=== PATIENT | female | born 1965 | race Caucasian/White ===

== ENCOUNTER 2017-07-06 13:55 | Inpatient (IN) | payer MEDICARE, MEDICAID ==
[~2017-07-06] VITALS: Ht 182.9 cm; Wt 72.3 kg
[2017-07-06] MEDS ORDERED: FAMOTIDINE 20 MG/2 ML ONE (15:23)
[2017-07-06] MEDS ORDERED: ONDANSETRON 2MG/ML, 2ML ONE (15:23)
[2017-07-06] MEDS ORDERED: SODIUM CHLORIDE 0.9% 1,000ML IVBOLUS ONE (15:30)
[2017-07-06] MEDS ORDERED: SODIUM CHLORIDE FLUSH 10ML SYR IVF ONE (15:30)
[2017-07-06] MEDS ORDERED: ONDANSETRON 2MG/ML, 2ML IVPush ONE (15:30)
[2017-07-06] MEDS ORDERED: FAMOTIDINE 20 MG/2 ML IVP ONE (15:30)
[2017-07-06] MEDS ORDERED: morphine SULFATE 10 MG/ML, 1ML ONE (15:30)
[2017-07-06 15:36] LABS: HEMATOCRIT 42.4 % (34.6-47.8); HEMOGLOBIN 14.1 g/dL (11.7-16.4); WHITE BLOOD COUNT 26.8 x10^3/uL (3.4-10)
[2017-07-06 15:43] LABS: ASPARTATE AMINO TRANSFERASE 5 U/L (15-37); BLOOD UREA NITROGEN 9 mg/dL (7-18)
[2017-07-06 15:57] LABS: DIFF TOTAL CELLS COUNTED 100 CELL DIFF
[2017-07-06 16:00] LABS: ANISOCYTOSIS 2+; MICROCYTOSIS 1+; POLYCHROMASIA 1+
[2017-07-06] MEDS ORDERED: MORPHINE SULFATE 4 MG/ML, 1ML IVPush PRN (16:00)
[2017-07-06 16:01] LABS: OVALOCYTES 1+
[2017-07-06 16:05] LABS: VERIFY COUNTS? YES
[2017-07-06] MEDS ORDERED: OMNIPAQUE 350 MG/ML, 100ML BOTTLE ONE (18:31)
[2017-07-06] MEDS ORDERED: SODIUM CHLORIDE 0.9% 1,000 ML IV ONE (19:57)
[2017-07-06] MEDS ORDERED: HYDROmorphone 1 MG/ML, 1ML IVPush PRN (20:00)
[2017-07-06] MEDS ORDERED: SODIUM CHLORIDE FLUSH 10ML SYR IVF PRN (20:00)
[2017-07-06] MEDS ORDERED: ONDANSETRON 2MG/ML, 2ML IVPush PRN ×2 (20:00→22:30)
[2017-07-06 21:50] VITALS: BP 106/93
[2017-07-06 22:23] VITALS: BP 106/73
[2017-07-06] MEDS ORDERED: ENALAPRILAT 1.25 MG/ML, 2ML IVPush PRN (22:30)
[2017-07-06] MEDS ORDERED: HYDROmorphone 2 MG/ML, 1ML IVPush PRN (22:30)
[2017-07-06] MEDS: SODIUM CHLORIDE 0.9% 1,000 ML IV SCH (23:00)
[2017-07-06] MEDS: NITROFURANTOIN (MACROBID) 100 MG CAPSULE PO SCH (23:00)
[2017-07-06] MEDS: ENOXAPARIN 40 MG/0.4 ML SQ SCH (23:00)
[2017-07-06] MEDS ORDERED: HYDROmorphone 2MG TABLET ONE (23:09)
[2017-07-06] MEDS: HYDROmorphone 4MG TABLET PO PRN (23:15)
[2017-07-07] MEDS ORDERED: NICOTINE 21 MG/24 HR PATCH.TD24 TD ONE ×2 (01:30→09:00)
[2017-07-07] MEDS ORDERED: HYDROmorphone 2MG TABLET ONE ×3 (02:26→09:44)
[2017-07-07] MEDS: HYDROmorphone 4MG TABLET PO PRN ×3 (02:27→10:03)
[2017-07-07 03:27] VITALS: BP 92/60
[2017-07-07] MEDS: SODIUM CHLORIDE 0.9% 1,000 ML IV SCH ×2 (05:37→14:09)
[2017-07-07 06:01] LABS: HEMATOCRIT 33.1 % (34.6-47.8); HEMOGLOBIN 10.9 g/dL (11.7-16.4); WHITE BLOOD COUNT 17.9 x10^3/uL (3.4-10)
[2017-07-07 06:06] LABS: BLOOD UREA NITROGEN 6 mg/dL (7-18)
[2017-07-07 06:21] LABS: DIFF TOTAL CELLS COUNTED 100 CELL DIFF
[2017-07-07 06:22] LABS: VERIFY COUNTS? YES
[2017-07-07 06:24] LABS: ANISOCYTOSIS 1+; POLYCHROMASIA 1+
[2017-07-07 06:25] LABS: OVALOCYTES 1+
[2017-07-07 07:00] VITALS: BP 99/65
[2017-07-07] MEDS: NITROFURANTOIN (MACROBID) 100 MG CAPSULE PO SCH ×2 (10:02→21:52)
[2017-07-07] MEDS ORDERED: QUET300T PO (11:25)
[2017-07-07] MEDS ORDERED: CARB200C PO (11:25)
[2017-07-07] MEDS ORDERED: ALPR2TAB5 PO (11:25)
[2017-07-07] MEDS ORDERED: MECL25TA4 PO (11:25)
[2017-07-07] MEDS ORDERED: BUSP15TA PO (11:25)
[2017-07-07] MEDS ORDERED: CODE1CAP7 PO (11:25)
[2017-07-07] MEDS ORDERED: CARI350T14 PO (11:25)
[2017-07-07] MEDS ORDERED: PROP40TA PO (11:25)
[2017-07-07] MEDS ORDERED: TRAZ50TA18 PO (11:25)
[2017-07-07] MEDS ORDERED: ALPRazolam 1MG TABLET PO ONE (12:00)
[2017-07-07] MEDS: CEFTRIAXONE PMX 2GM/50ML 50 ML IV SCH (12:13)
[2017-07-07 12:45] VITALS: BP 125/81
[2017-07-07] MEDS: OXYcodone IR 5MG TABLET PO PRN ×2 (14:56→21:53)
[2017-07-07] MEDS ORDERED: CALCIUM CITRATE 950 MG TABLET PO ONE (20:30)
[2017-07-07 20:53] VITALS: BP 143/87
[2017-07-07] MEDS: TRAZODONE 50MG TABLET PO SCH (21:52)
[2017-07-07] MEDS: QUETIAPINE 100MG TABLET PO SCH (21:53)
[2017-07-07] MEDS: BUSPIRONE 5 MG TABLET PO SCH (21:53)
[2017-07-07 21:54] LABS: ASPARTATE AMINO TRANSFERASE 6 U/L (15-37); BLOOD UREA NITROGEN 3 mg/dL (7-18)
[2017-07-07] MEDS: ENOXAPARIN 40 MG/0.4 ML SQ SCH (21:54)
[2017-07-07 22:12] LABS: HIV 1&2 ANTIBODY SCREEN Nonreactive (Nonreactive); HIV-1 p24 ANTIGEN Nonreactive (Nonreactive)
[2017-07-08 02:34] VITALS: BP 116/74
[2017-07-08] MEDS: SODIUM CHLORIDE 0.9% 1,000 ML IV SCH ×4 (02:52→21:40)
[2017-07-08 05:16] LABS: HEMATOCRIT 31.8 % (34.6-47.8); HEMOGLOBIN 10.5 g/dL (11.7-16.4); WHITE BLOOD COUNT 8.6 x10^3/uL (3.4-10)
[2017-07-08 05:21] LABS: BLOOD UREA NITROGEN 2 mg/dL (7-18)
[2017-07-08 08:00] VITALS: BP 139/98
[2017-07-08] MEDS: BUSPIRONE 5 MG TABLET PO SCH ×2 (09:00→21:24)
[2017-07-08] MEDS: QUETIAPINE 100MG TABLET PO SCH ×2 (09:00→19:43)
[2017-07-08] MEDS: NITROFURANTOIN (MACROBID) 100 MG CAPSULE PO SCH ×3 (09:00→21:23)
[2017-07-08] MEDS: CEFTRIAXONE PMX 2GM/50ML 50 ML IV SCH (10:41)
[2017-07-08 13:30] VITALS: BP 129/93
[2017-07-08 20:25] VITALS: BP 109/70
[2017-07-08 20:35] LABS: DAU SCREEN DISCLAIMER
[2017-07-08] MEDS: TRAZODONE 50MG TABLET PO SCH (21:00)
[2017-07-08] MEDS: ENOXAPARIN 40 MG/0.4 ML SQ SCH (21:24)
[2017-07-09 01:56] VITALS: BP 144/96
[2017-07-09] MEDS: OXYcodone IR 5MG TABLET PO PRN ×5 (03:38→22:17)
[2017-07-09] MEDS: SODIUM CHLORIDE 0.9% 1,000 ML IV SCH ×3 (06:17→22:39)
[2017-07-09 08:00] VITALS: BP 133/78
[2017-07-09] MEDS: BUSPIRONE 5 MG TABLET PO SCH ×2 (09:44→22:18)
[2017-07-09] MEDS: QUETIAPINE 100MG TABLET PO SCH ×2 (09:44→22:18)
[2017-07-09] MEDS: NITROFURANTOIN (MACROBID) 100 MG CAPSULE PO SCH (09:44)
[2017-07-09] MEDS: CEFTRIAXONE 2 GM in DEXTROSE 5% 50 ML IVPB SCH (13:42)
[2017-07-09 13:55] VITALS: BP 110/71
[2017-07-09 19:45] VITALS: BP 120/82
[2017-07-09] MEDS: ENOXAPARIN 40 MG/0.4 ML SQ SCH (22:18)
[2017-07-09] MEDS: TRAZODONE 50MG TABLET PO SCH (22:18)
[2017-07-10 02:11] VITALS: BP 121/82
[2017-07-10] MEDS: SODIUM CHLORIDE 0.9% 1,000 ML IV SCH ×3 (06:21→19:55)
[2017-07-10] MEDS: OXYcodone IR 5MG TABLET PO PRN ×5 (06:46→23:55)
[2017-07-10 06:53] VITALS: BP 130/90
[2017-07-10] MEDS: BUSPIRONE 5 MG TABLET PO SCH ×2 (08:30→19:54)
[2017-07-10] MEDS: QUETIAPINE 100MG TABLET PO SCH ×2 (08:30→19:54)
[2017-07-10] MEDS: CEFTRIAXONE 2 GM in DEXTROSE 5% 50 ML IVPB SCH (11:48)
[2017-07-10 13:22] VITALS: BP 123/55
[2017-07-10 13:23] VITALS: BP 95/63
[2017-07-10] MEDS ORDERED: MICONAZOLE CRM 2%, 15GM TP PRN (15:00)
[2017-07-10] MEDS: MICONAZOLE NITRATE VG SCH ×2 (15:27→16:00)
[2017-07-10] MEDS: VAG VG SCH ×2 (15:27→16:00)
[2017-07-10] MEDS: TRAZODONE 50MG TABLET PO SCH (19:54)
[2017-07-10] MEDS: ENOXAPARIN 40 MG/0.4 ML SQ SCH (19:54)
[2017-07-10 19:58] VITALS: BP 128/80
[2017-07-11 01:01] VITALS: BP 100/64
[2017-07-11] MEDS: OXYcodone IR 5MG TABLET PO PRN ×5 (03:50→21:27)
[2017-07-11] MEDS: SODIUM CHLORIDE 0.9% 1,000 ML IV SCH (03:51)
[2017-07-11 07:34] VITALS: BP 110/77
[2017-07-11] MEDS: BUSPIRONE 5 MG TABLET PO SCH ×2 (08:40→23:28)
[2017-07-11] MEDS ORDERED: DIPHENHYDRAMINE 50 MG/ML, 1ML IVPush STA (08:41)
[2017-07-11] MEDS: QUETIAPINE 100MG TABLET PO SCH ×2 (08:41→23:28)
[2017-07-11] MEDS ORDERED: LORazepam 2 MG/ML, 1ML IVPush STA (08:41)
[2017-07-11] MEDS ORDERED: ONDANSETRON 2MG/ML, 2ML IVPush PRN (09:00)
[2017-07-11 10:02] LABS: HEMATOCRIT 31.5 % (34.6-47.8); HEMOGLOBIN 10.4 g/dL (11.7-16.4); WHITE BLOOD COUNT 9.8 x10^3/uL (3.4-10)
[2017-07-11 10:06] LABS: BLOOD UREA NITROGEN 2 mg/dL (7-18)
[2017-07-11] MEDS: CEFTRIAXONE 2 GM in DEXTROSE 5% 50 ML IVPB SCH (11:26)
[2017-07-11] MEDS: MICONAZOLE NITRATE VG SCH (16:00)
[2017-07-11] MEDS: VAG VG SCH (16:00)
[2017-07-11 16:01] VITALS: BP 114/74
[2017-07-11] MEDS ORDERED: METHYLNALTREXONE 12 MG/0.6 ML SQ SCH (16:30)
[2017-07-11] MEDS ORDERED: LACTATED RINGERS 1,000 ML IV SCH (16:30)
[2017-07-11] MEDS: POLYETHYLENE GLYCOL 17 GM PACKET PO SCH (23:25)
[2017-07-11] MEDS: LACTATED RINGERS 1,000 ML IV SCH (23:27)
[2017-07-11] MEDS: TRAZODONE 50MG TABLET PO SCH (23:28)
[2017-07-11] MEDS: ENOXAPARIN 40 MG/0.4 ML SQ SCH (23:29)
[2017-07-12 04:39] VITALS: BP 120/72
[2017-07-12] MEDS: OXYcodone IR 5MG TABLET PO PRN ×4 (04:50→20:33)
[2017-07-12] MEDS: POLYETHYLENE GLYCOL 17 GM PACKET PO SCH (09:45)
[2017-07-12] MEDS: BUSPIRONE 5 MG TABLET PO SCH ×2 (09:45→20:28)
[2017-07-12] MEDS: QUETIAPINE 100MG TABLET PO SCH ×2 (09:46→20:30)
[2017-07-12] MEDS: CEFTRIAXONE 2 GM in DEXTROSE 5% 50 ML IVPB SCH (10:30)
[2017-07-12 10:32] VITALS: BP 106/70
[2017-07-12 13:19] VITALS: BP 98/61
[2017-07-12 18:24] VITALS: BP 112/71
[2017-07-12] MEDS: LACTATED RINGERS 1,000 ML IV SCH (20:00)
[2017-07-12] MEDS: TRAZODONE 50MG TABLET PO SCH (20:29)
[2017-07-12] MEDS: ENOXAPARIN 40 MG/0.4 ML SQ SCH (20:30)
[2017-07-13] MEDS: OXYcodone IR 5MG TABLET PO PRN ×3 (00:41→10:59)
[2017-07-13 01:00] VITALS: BP 95/60
[2017-07-13 06:59] VITALS: BP 119/80
[2017-07-13] MEDS ORDERED: TRAZ50TA18 PO (08:14)
[2017-07-13] MEDS ORDERED: BUSP15TA PO (08:14)
[2017-07-13] MEDS ORDERED: POLY17PO5 PO (08:14)
[2017-07-13] MEDS ORDERED: QUET300T PO (08:14)
[2017-07-13] MEDS ORDERED: OXYC5TAB3 PO (08:14)
[2017-07-13] MEDS ORDERED: ALPR2TAB5 PO (08:14)
[2017-07-13] MEDS ORDERED: IBUP-11 PO (08:14)
[2017-07-13] MEDS: POLYETHYLENE GLYCOL 17 GM PACKET PO SCH (09:17)
[2017-07-13] MEDS: QUETIAPINE 100MG TABLET PO SCH (09:18)
[2017-07-13] MEDS: BUSPIRONE 5 MG TABLET PO SCH (09:19)
[2017-07-13] MEDS: CEFTRIAXONE 2 GM in DEXTROSE 5% 50 ML IVPB SCH (10:17)
[2017-07-13 12:08] VITALS: BP 95/70
== END 2017-07-13 12:30 | disposition home or self-care (01) | DRG 871 ==
LOC: ED 16:58 → 4NOR 19:57
PROVIDERS: ADMIT Hospitalist; ATTEND Hospitalist
DX: A41.9 Sepsis, unspecified organism (principal); E43 Unspecified severe protein-calorie malnutrition; N39.0 Urinary tract infection, site not specified; E87.1 Hypo-osmolality and hyponatremia; F33.9 Major depressive disorder, recurrent, unspecified; F17.210 Nicotine dependence, cigarettes, uncomplicated; G40.909 Epilepsy, unspecified, not intractable, without status epilepticus; R61 Generalized hyperhidrosis; B96.4 Proteus (mirabilis) (morganii) as the cause of diseases classified elsewhere; K82.8 Other specified diseases of gallbladder; Z80.0 Family history of malignant neoplasm of digestive organs; Z90.710 Acquired absence of both cervix and uterus; Z98.84 Bariatric surgery status; Z68.21 Body mass index [BMI] 21.0-21.9, adult; Z88.8 Allergy status to other drugs, medicaments and biological substances
CPT/HCPCS: 36415; 74000; 74020; 74177; 74245; 76700; 80048; 80053; 80307; 81001; 83605; 83690; 83735; 84145; 85025; 86480; 86703; 87040; 87077; 87086; 87186; 87899; 96361; 96372; 96374; 96375; J0696; J1650; J2405; Q9967; G0435; G0479; J1200; J2060; J7030; J7120; S0028